=== PATIENT | female | born 1980 ===

== ENCOUNTER 2018-04-29 15:12 | Emergency (ER) | payer OTHER ==
[~2018-04-29] VITALS: Ht 167.6 cm; Wt 67.6 kg
[2018-04-29] MEDS ORDERED: LEVSIN/SL0.125 MG PO (22:13)
[2018-04-29] MEDS ORDERED: ANUSOL-HC25 MG RECTAL (22:13)
[2018-04-29] MEDS ORDERED: INTESTINEX680 M1 PO (22:13)
== END 2018-04-29 22:23 ==
LOC: ER 15:12
DX: K64.8 Other hemorrhoids (principal); K62.5 Hemorrhage of anus and rectum

== ENCOUNTER 2019-07-06 14:56 | Emergency (ER) | payer OTHER ==
[~2019-07-06] VITALS: Ht 160 cm; Wt 70.8 kg
[~2019-07-06 14:56] MED LIST: ANUSOL-HC25 MG RECTAL; INTESTINEX680 M1 PO; LEVSIN/SL0.125 MG PO
== END 2019-07-06 20:22 | disposition home or self-care (01) ==
LOC: ER 14:56
DX: M54.5 Low back pain (principal)